=== PATIENT | male | born 1965 | race Caucasian/White ===

== ENCOUNTER 2016-11-28 03:48 | Observation (INO) ==
[2016-11-28] MEDS ORDERED: 0.9 % Sodium Chloride 1,000 ML IVC SCH (04:00)
--- NOTE | 2016-11-28 04:20 | Emergency Department Note ---
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 use: without fisher diver net use Qualified Code(s ): E11.65 - Type 2 diabetes mellitus with hyperglycemia Disposition: Admitted As Inpatient Condition: Fair Referrals: Vishal Ruvalcaba DO [Primary Care Provider] - Forms: Work/School Release, ED Satisfaction Letter Time of Disposition: 06:41 General Adult HPI - General Chief complaint: ED General Medical Stated complaint: Hyperglycemia, Nausea, Dizzy Time Seen by Provider: 11/28/16 03:59 Source: patient, EMS Limitations: no limitations Nursing Notes Reviewed: Yes Vital Signs Reviewed: Yes - History of Present Illness HPI Narrative: Patient is a 51-year-old male who presents to ED with a chief complaint of hyperglycemia, nausea, dizziness. States he was recently diagnosed with type 2 diabetes by his primary care physician Dr. Ruvalcaba. He was given a prescription for metformin which he started taking this evening. States his blood sugar remained high at over 500. He then woke up around 2:00 in the morning feeling dizzy, nauseous. Denies any vomiting. No chest pain or shortness breath. He has had a cough that has been worse over the last few days. Denies any abdominal pain, difficulty with urination. Has had some constipation. 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 Denies: chest pain, fever /chills, headaches, loss of appetite, shortness of breath, weakness Treatments Prior to Arrival: none - Related Data Previous Rx's Medication Instructions Recorded Azithromycin [Zithromax] 250 mg PO DAILY #4 tablet 08/14/16 PredniSONE [Prednisone] 50 mg PO DAILY #5 tablet 09/08/16 Allergies Allergy/AdvReac Type Severity Reaction Status Date / Time Penicillins AdvReac See Verified 11/28/16 03:54 Comments All systems ED: reviewed and negative except as stated. Past Medical History - Past Medical History Attestation: Yes The following information was validated with the patient. Source: patient Medical history: Reports: asthma, hypertension, thyroid disease Psychiatric history: Reports: anxiety, bipolar, depression, PTSD - Social History Smoking Status: Current every day smoker Smokeless Tobacco Status: Yes Alcohol use: Reports: none Drug use: Reports: none Physical Exam - General Limitations: no limitations General appearance: alert, in no apparent distress - Head Head exam: atraumatic, normocephalic, normal inspection - Eye Eye exam: Present: normal appearance, PERRL, EOMI - ENT ENT exam: normal exam, normal oropharynx, mucous membranes moist - Neck Neck exam: Present: normal inspection, full ROM, trachea midline - Chest Chest inspection: Present: normal inspection, symmetric chest wall rise - Respiratory Respiratory exam: Present: normal lung sounds bilaterally - Cardiovascular Cardiovascular exam: Present: regular rate, normal rhythm, normal heart sounds - Abdominal Exam Abdominal exam: Present: soft, Non-Tender. Absent: tenderness, distention, guarding, rebound, rigidity - Extremities Exam Extremities exam: Present: normal inspection, full ROM. Absent: tenderness, pedal edema - Back Exam Back exam: Present: normal inspection, full ROM. Absent: tenderness - Neurological Exam Neurological exam: Present: alert, oriented X3 - Psychiatric Psychiatric exam: Present: normal affect, normal mood - Skin Skin exam: Present: warm, dry, intact, normal color Course Course Narrative: Patient seen and examined. Hyperglycemia, now with nausea, dizziness. Lab work ordered to check for HHNK vs DKA. Chest x-ray ordered to assess worsening cough. - Reevaluation(s) Reevaluation #1: Patient's lab work showed elevated glucose in the 400s. Also elevated beta hydroxybutyrate. He does not have an in and gap or metabolic acidosis at this time. However seems like he may have been headed there. Due to this being a new diagnosis and patient not feeling safe about going home, will get patient admitted for stabilization of his glucose as well as diabetic education. Patient received 2 L of IV fluids as well as 8 units of IV insulin. Repeat glucose at 267. I spoke with hospitalist Dr. Rolon who has accepted patient for admission. Time: 06:41 Vital Signs Temperature 98.4 F 11/28/16 03:49 Pulse Rate 86 11/28/16 03:49 Respiratory Rate 20 11/28/16 03:49 Blood Pressure 128/83 11/28/16 03:49 O2 Sat by Pulse Oximetry 95 11/28/16 03:49 Temperature 98.4 F 11/28/16 03:49 Pulse Rate 86 11/28/16 03:49 Respiratory Rate 20 11/28/16 03:49 Blood Pressure 128/83 11/28/16 03:49 O2 Sat by Pulse Oximetry 95 11/28/16 03:49 Oxygen Delivery Oxygen Delivery Room Air Medical Decision Making - Medical Records Medical records reviewed: Yes I reviewed the patient's medical records. - Lab Data Lab results reviewed: Yes I reviewed the patient's lab results. Result diagrams: 11/28/16 04:20 11/28/16 04:20 Lab Results 11/28/16 11/28/16 11/28/16 Range/Units 03:57 03:58 04:20 WBC 10.1 (4.3-11.1) K/mcL RBC 4.89 (4.19-5.50) M/mcL Hgb 15.3 (12.9-16.9) g/dL Hct 43.5 (37.5-50.1) % MCV 89.0 (83.0-100.0) fL MCH 31.3 (28.0-33.3) pg MCHC 35.2 (31.6-35.5) g/dL RDW 13.7 (11.5-14.5) % Plt Count 260 (140-400) K/mcL MPV 10.4 (9.4-12.4) fL Immature Gran % 1.2 (0-4) % Seg Neutrophils % 66.9 % Lymphocytes % 19.3 % Monocytes % 9.8 % Eosinophils % 2.2 % Basophils % 0.6 % Neutrophils # 6.7 (1.6-8.9) K/mcL Lymphocytes # 1.9 (0.6-4.6) K/mcL Monocytes # 1.0 (0.0-1.3) K/mcL Eosinophils # 0.2 (0.0-0.6) K/mcL Basophils # 0.1 (0.0-0.2) K/mcL VBG pH (7.32-7.42) pH Units VBG pCO2 (41-51) mmHg VBG pO2 (25-40) mmHg VBG HCO3 (21-27) mEq/L Sodium (136-145) mEq/L Potassium (3.5-4.5) mEq/L Chloride (98-109) mEq/L Carbon Dioxide (19-29) mEq/L BUN (8-26) mg/dL Creatinine (0.72-1.25) mg/dL Est GFR ( Amer) (> 60) Est GFR (Non-Af Amer) (> 60) BUN/Creatinine Ratio (6-26) Glucose (70-99) mg/dL POC Glucose 452 H* 486 H* (58-89) Calculated Osmolality (280-300) Calcium (8.6-10.8) mg/dL Magnesium (1.6-2.6) mg/dL Beta-Hydroxybutyric Acd (0.02-0.27) mmol/L 11/28/16 11/28/16 Range/Units 04:20 04:20 WBC (4.3-11.1) K/mcL RBC (4.19-5.50) M/mcL Hgb (12.9-16.9) g/dL Hct (37.5-50.1) % MCV (83.0-100.0) fL MCH (28.0-33.3) pg MCHC (31.6-35.5) g/dL RDW (11.5-14.5) % Plt Count (140-400) K/mcL MPV (9.4-12.4) fL Immature Gran % (0-4) % Seg Neutrophils % % Lymphocytes % % Monocytes % % Eosinophils % % Basophils % % Neutrophils # (1.6-8.9) K/mcL Lymphocytes # (0.6-4.6) K/mcL Monocytes # (0.0-1.3) K/mcL Eosinophils # (0.0-0.6) K/mcL Basophils # (0.0-0.2) K/mcL VBG pH 7.40 (7.32-7.42) pH Units VBG pCO2 48 (41-51) mmHg VBG pO2 66 H (25-40) mmHg VBG HCO3 29.7 H (21-27) mEq/L Sodium 129 L (136-145) mEq/L Potassium 4.1 (3.5-4.5) mEq/L Chloride 95 L (98-109) mEq/L Carbon Dioxide 22 (19-29) mEq/L BUN 12 (8-26) mg/dL Creatinine 1.24 (0.72-1.25) mg/dL Est GFR ( Amer) > 60 (> 60) Est GFR (Non-Af Amer) > 60 (> 60) BUN/Creatinine Ratio 10 (6-26) Glucose 483 H (70-99) mg/dL POC Glucose (58-89) Calculated Osmolality 289 (280-300) Calcium 9.3 (8.6-10.8) mg/dL Magnesium 1.7 (1.6-2.6) mg/dL Beta-Hydroxybutyric Acd 0.30 H (0.02-0.27) mmol/L - Radiology Data Radiology results reviewed: Yes I reviewed the patient's radiology results. Chest X-Ray 11/28/16 04:17 IMPRESSION: No significant findings in the chest. D/ / Nolan Conti MD / Nolan Conti MD Interpreting Provider: Nolan Conti MD - EKG Data EKG #1 EKG attestation: Yes I reviewed and interpreted this EKG. EKG results narrative: EKG done at 434 shows normal sinus rhythm with a rate of [address] elevation or depression. Normal axis. Unchanged from prior EKG done 09/08/2016 Attestation Statement - Attestation Attestation: I examined this patient and my medical decision-making was reviewed with the CLOUD AUTOMATION TESTER/PA/Advanced Practice Nurse/Resident Physician. I agree with the documented findings, disposition and treatment plan as described except to the extent set forth below. Patient to the emergency department with a chief complaint of not feeling well. Dizzy and nauseated. Patient saw his PCP yesterday and was started on metformin for a blood sugar of 500. He is a newly diagnosed diabetic. Denies chest pain or trouble breathing. On exam is awake alert no acute distress. Heart regular rate and rhythm lungs are clear. Plan. The patient's blood sugar here is in the upper 400s. He is given IV fluids. Hospitalist refusing admission. We will give a dose of IV insulin and then admit.
[2016-11-28 04:31] LABS: Basophils # 0.1 K/mcL (0.0-0.2); Basophils % 0.6 %; Eosinophils # 0.2 K/mcL (0.0-0.6); Eosinophils % 2.2 %; Hematocrit 43.5 % (37.5-50.1); Hemoglobin 15.3 g/dL (12.9-16.9); Immature Granulocytes % 1.2 % (0-4); Lymphocytes # 1.9 K/mcL (0.6-4.6); Lymphocytes % 19.3 %; Mean Corpuscular HGB Conc 35.2 g/dL (31.6-35.5); Mean Corpuscular Hemoglobin 31.3 pg (28.0-33.3); Mean Platelet Volume 10.4 fL (9.4-12.4); Monocytes % 9.8 %; Neutrophils # 6.7 K/mcL (1.6-8.9); Platelet Count 260 K/mcL (140-400); Red Blood Count 4.89 M/mcL (4.19-5.50); Red Cell Distribution Width 13.7 % (11.5-14.5); Segmented Neutrophils % 66.9 %
[2016-11-28 04:34] LABS: VBG HCO3 29.7 mEq/L (21-27); VBG PH 7.4 pH Units (7.32-7.42)
[2016-11-28 04:49] LABS: BUN/Creatinine Ratio 10 (6-26); Blood Urea Nitrogen 12 mg/dL (8-26); Calcium 9.3 mg/dL (8.6-10.8); Carbon Dioxide 22 mEq/L (19-29); Chloride 95 mEq/L (98-109); Glucose 483 mg/dL (70-99); Magnesium 1.7 mg/dL (1.6-2.6); Osmolality,Calculated 289 (280-300); Potassium 4.1 mEq/L (3.5-4.5); Sodium 129 mEq/L (136-145); eGFR For African Americans > 60 (> 60); eGFR For Non-African Americans > 60 (> 60)
[2016-11-28] MEDS ORDERED: 0.9 % Sodium Chloride 1,000 ML IVC ONE (04:53)
[2016-11-28] MEDS ORDERED: Insulin Regular, Human 100 UNIT/ML IV SCH (05:15)
[2016-11-28] MEDS ORDERED: Acetaminophen 325 MG TABLET PO PRN (08:05)
[2016-11-28] MEDS ORDERED: *HR* Dextrose 50 % in Water (Syg) 50 ML SYRINGE IVP PRN (08:07)
[2016-11-28] MEDS ORDERED: Dextrose Gel 15 GM PO PRN ×2 (08:07)
[2016-11-28] MEDS ORDERED: D5% in Water 1,000 ML IV PRN (08:07)
[2016-11-28] MEDS: 0.9 % Sodium Chloride 1,000 ML IVC SCH ×2 (09:33→19:58)
[2016-11-28 10:13] LABS: Hemoglobin A1C 11.5 %
[2016-11-28] MEDS: Insulin LISPRO 300 UNITS/3 ML VIAL SQ SCH ×2 (12:01→17:17)
[2016-11-28] MEDS ORDERED: hydrOXYzine pamoate 25 MG CAPSULE PO PRN (12:17)
[2016-11-28] MEDS ORDERED: Ibuprofen 600 MG TABLET PO PRN (12:19)
--- NOTE | 2016-11-28 12:24 | Internal Med History&Physical ---
Date of Encounter: 11/28/16 Time of Encounter: 12:21 Assessment and Plan (1) Morbid obesity with BMI of 50.0-59.9, adult Current visit: Yes Status: Acute Patient weight loss regimen. I have advised increasing physical exercise level. (2) Essential hypertension Current visit: Yes Status: Acute Continue with lisinopril. (3) Hypothyroidism Current visit: Yes Status: Acute Check TSH. Continue levothyroxine. Qualifiers: Hypothyroidism type: unspecified Qualified Code(s): E03.9 - Hypothyroidism , unspecified (4) DVT prophylaxis Current visit: Yes Status: Acute Encourage early ambulation. (5) Hyperglycemia due to type 2 diabetes mellitus Current visit: Yes Status: Acute We will start insulin sliding scale. We will treat him with IV fluids. We will get nurse educator to talk to him. We will start glipizide. Continue his metformin. Plan for discharge home on glipizide and metformin. Check hemoglobin A1c. Qualifiers: Diabetes mellitus care home insulin use: without care home use Qualified Code(s): E11.65 - Type 2 diabetes mellitus with hyperglycemia (6) Tobacco use disorder Current visit: Yes Status: Acute I have advised smoking cessation and provided counseling. Internal Medicine - H&P: HPI Chief complaint: Elevated blood glucose Admitted From: Emergency Dept Plans for Post Hospital Care: Home History of present illness: Mr. Adamson is a 51 year old male with past medical history significant for hypertension, asthma, hypothyroidism and morbid obesity, recently diagnosed with type 2 diabetes yesterday and started on metformin who presented to the hospital for moderate to severe dizziness felt as disequilibrium and lightheadedness that started yesterday and got significantly worse this morning around 2 AM when he stood up to go to the bathroom. He denies any associated chest pain shortness of breath nausea vomiting diarrhea. He was diagnosed with type 2 diabetes yesterday and prescribed metformin. He checked his blood glucose at home and was 400 and after taking the metformin his blood glucose was above 500. He has chronic back pain and neck pain, chronic depression and anxiety. He reports polyuria and polydipsia for the last 2 months. A temporary review of systems was negative. Past medical history as above Psychiatric history: Anxiety depression and PTSD. Family history positive for COPD and lung cancer in the patient's mother and CAD in the patient's father Past Med Surg Social Fam HX - Past Medical History Medical history: asthma, hypertension, thyroid disease Psychiatric history: anxiety, bipolar, depression, PTSD - Social History Smoking Status: Current every day smoker Packs per day: 5 cigerettes Smokeless Tobacco Status: Yes Alcohol use: none Drug use: none - Family History Mother Living Status: Hx Family Cardiac Disorders: Yes (HTN) Hx Family Respiratory Disorders: Yes (COPD) Father Living Status: Hx Family Cardiac Disorders: Yes (Heart disease, HTN) Hx Family Endocrine Disorder: Yes (DM) Sister Living Status: Still Living Hx Family Endocrine Disorder: Yes (DM) Internal Medicine - H&P: Meds Hydrochlorothiazide 25 mg PO DAILY 11/28/16 [History] Hydroxyzine HCl 25 - 50 mg PO TID PRN 11/28/16 [History] Levothyroxine Sodium [Levoxyl] 200 mcg PO DAILY 11/28/16 [History] Lisinopril [Zestril] 20 mg PO DAILY 11/28/16 [History] Metformin [Glucophage] 1,000 mg PO BIDWM 11/28/16 [History] Naproxen [Naprosyn] 500 mg PO BID 11/28/16 [History] Sertraline [Zoloft] 50 mg PO DAILY 11/28/16 [History] Allergies Penicillins Adverse Reaction (Verified 11/28/16 03:54) See Comments "dosen't work for me" All Systems PM: A 10-system review of systems was performed and is negative for pertinent findings except as documented above in the HPI. - Constitutional Vitals: Temp Pulse Resp BP Pulse Ox 97.3 F L 80 16 120/80 98 11/28/16 10:35 11/28/16 10:35 11/28/16 10:35 11/28/16 10:35 11/28/16 10:35 General appearance: Present: A&O X 3, morbidly obese - Eye Eye exam: Present: PERRL, conjuntiva pink, sclera anicteric Pupils: Present: PERRL - Respiratory Respiratory exam: Present: CTAB. Absent: accessory muscle use, rales, rhonchi, wheezes - Cardiovascular Cardiovascular exam: Present: RRR, +S1, +S2. Absent: diastolic murmur, gallop, rubs, systolic murmur - GI/Abdominal GI/Abdominal exam: Present: normal bowel sounds, soft, no peritoneal signs. Absent: distended, tenderness - Extremities Exam Extremities exam: Present: warm, radial pulses palpable and symetrical. Absent : calf tenderness, cyanotic, pedal edema - Neurological Exam Neurological exam: Present: CN II-XII intact, oriented X3, no focal deficits. Absent: pronater drift, facial droop, speech deficit - Skin Skin exam: Present: dry, intact Internal Med - H&P Results - Labs CBC & Chem 7: 11/28/16 04:20 11/28/16 04:20
[2016-11-28] MEDS: hydroCHLOROthiazide 25 MG TABLET PO SCH (13:37)
[2016-11-28] MEDS: Lisinopril 20 MG TABLET PO SCH (13:37)
[2016-11-28] MEDS ORDERED: Albuterol 2.5 MG/3 ML NEBULIZER IH PRN (13:41)
[2016-11-28] MEDS: *HR* OxyCODONE Immed Rel 5 MG TABLET PO PRN (15:38)
[2016-11-28] MEDS: *HR* Metformin 500 MG TABLET PO SCH (17:17)
[2016-11-28] MEDS ORDERED: Insulin LISPRO 300 UNITS/3 ML VIAL SQ SCH (21:00)
[2016-11-29 04:29] LABS: Basophils # 0.1 K/mcL (0.0-0.2); Basophils % 0.8 %; Eosinophils # 0.3 K/mcL (0.0-0.6); Hematocrit 41.6 % (37.5-50.1); Hemoglobin 14.8 g/dL (12.9-16.9); Immature Granulocytes % 1.3 % (0-4); Lymphocytes # 2.7 K/mcL (0.6-4.6); Lymphocytes % 30.9 %; Mean Corpuscular HGB Conc 35.6 g/dL (31.6-35.5); Mean Platelet Volume 10.6 fL (9.4-12.4); Monocytes # 0.8 K/mcL (0.0-1.3); Monocytes % 9.4 %; Neutrophils # 4.7 K/mcL (1.6-8.9); Platelet Count 241 K/mcL (140-400); Red Blood Count 4.62 M/mcL (4.19-5.50); Red Cell Distribution Width 13.7 % (11.5-14.5); Segmented Neutrophils % 54.6 %
[2016-11-29 04:41] LABS: BUN/Creatinine Ratio 9 (6-26); Blood Urea Nitrogen 9 mg/dL (8-26); Calcium 8.4 mg/dL (8.6-10.8); Carbon Dioxide 23 mEq/L (19-29); Chloride 96 mEq/L (98-109); Glucose 251 mg/dL (70-99); Osmolality,Calculated 277 (280-300); Potassium 3.8 mEq/L (3.5-4.5); Sodium 130 mEq/L (136-145); eGFR For African Americans > 60 (> 60); eGFR For Non-African Americans > 60 (> 60)
[2016-11-29 05:03] LABS: Thyroid Stimulating Hormone 56.728 mcIU/mL (0.350-4.840)
[2016-11-29] MEDS: *HR* OxyCODONE Immed Rel 5 MG TABLET PO PRN (05:33)
[2016-11-29 06:45] VITALS: BP 108/72
[2016-11-29] MEDS ORDERED: *HR* GlipiZIDE XL (24 HR) 2.5 MG TABLET PO SCH (08:00)
[2016-11-29] MEDS: Insulin LISPRO 300 UNITS/3 ML VIAL SQ SCH (08:24)
[2016-11-29] MEDS: Lisinopril 20 MG TABLET PO SCH (08:25)
[2016-11-29] MEDS: hydroCHLOROthiazide 25 MG TABLET PO SCH (08:25)
[2016-11-29] MEDS: *HR* Metformin 500 MG TABLET PO SCH (08:25)
[2016-11-29] MEDS ORDERED: BuPROPion XL (24 HR) 150 MG TABLET PO SCH (09:00)
[2016-11-29] MEDS ORDERED: *HR* SitaGLIPtin 100 MG TABLET PO SCH (10:15)
[2016-11-29] MEDS ORDERED: Insulin DETEMIR 100 UNIT/ML X5UNITS SQ SCH (10:15)
--- NOTE | 2016-11-29 10:21 | Discharge Summary ---
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: without alf use Qualified Code(s): E11.65 - Type 2 diabetes mellitus with hyperglycemia (3) Hypothyroidism Priority: Secondary Status: Chronic Qualifiers: Hypothyroidism type: unspecified Qualified Code(s): E03.9 - Hypothyroidism , unspecified (4) Morbid obesity with BMI of 50.0-59.9, adult Priority: Secondary Status: Chronic (5) Tobacco use disorder Priority: Secondary Status: Chronic (6) Orthostatic dizziness Priority: Primary Status: Acute (7) Dehydration with hyponatremia Priority: Primary Status: Acute - Discharge Medications Prescriptions: Blood Sugar Diagnostic [Test Strips] 1 each TID #100 strip Insulin Glargine,Hum.rec.anlog [Lantus Solostar] 15 unit SQ QPM #1 insuln.pen SitaGLIPtin [Januvia] 100 mg PO DAILY 30 Days Home Medications: BuPROPion [Wellbutrin] 150 mg PO DAILY 11/28/16 [History] Fluticasone/Vilanterol [Breo Ellipta 100-25 Mcg INH] 1 puff IH DAILY 11/28/16 [ History] Hydrochlorothiazide 25 mg PO DAILY 11/28/16 [History] Hydroxyzine HCl 25 - 50 mg PO TID PRN 11/28/16 [History] Ipratropium/Albuterol Sulfate [Combivent Respimat Inhal [place]] 4 gm IH QID 11/28 [History] Levothyroxine Sodium [Levoxyl] 200 mcg PO DAILY 11/28/16 [History] Lisinopril [Zestril] 20 mg PO DAILY 11/28/16 [History] Metformin [Glucophage] 1,000 mg PO BIDWM 11/28/16 [History] Naproxen [Naprosyn] 500 mg PO BID 11/28/16 [History] Oxymetazoline HCl [Nasal [place]] 2 spray IN TID PRN 11/28/16 [History] Prazosin 1 mg PO HS 11/28/16 [History] Blood Sugar Diagnostic [Test Strips] 1 each TID #100 strip 11/29/16 [Rx] Insulin Glargine,Hum.rec.anlog [Lantus Solostar] 15 unit SQ QPM #1 insuln.pen [Rx] SitaGLIPtin [Januvia] 100 mg PO DAILY 30 Days 11/29/16 [Rx] Allergies/Adverse Reactions: Allergies Penicillins Adverse Reaction (Verified 11/28/16 03:54) See Comments "dosen't work for me" Date of admission: 11/28/16 06:50 Primary care physician: Vishal Antoine Consults: 11/28/16 08:07 Consult to Airconditioning Plant Operator [CONS] Stat Comment: Discharging clinician: Rony Anderson Anticipated date of discharge: 11/29/16 - Patient Status Disposition: Home, Self-Care Condition: Good Overall status at discharge: patient is back to baseline - Discharge Instructions Follow Up With: Vishal Ruvalcaba DO [Primary Care Provider] - Additional Instructions: HbA1C in 3 months. - Diet and Activity Activity: resume usual activities as tolerated Diet: diabetic diet, low fat, low cholesterol Interval History: He feels better, random blood glucose is now 200-250. Hospital course: Mr. Adamson is a 51 year old male with medical history significant for hypertension, asthma, hypothyroidism and morbid obesity, recently diagnosed with type 2 diabetes, with initiation of metformin therapy admitted with severe dizziness felt as disequilibrium and lightheadedness, in the setting of hyperglycemia (RBS>400) and complaint of polyuria. He had anxiety about blood glucose reading >500. HbA1C done a couple of days ago was 11.5%. He was admitted for IV hydration and optimal glycemic control. He received IVF, sliding scale insulin. Glucose control had improved at discharge and he was much better hydrated. He is discharged home on Levemir 15u QD, Januvia 100mg po QD and to continue his home Metformin. HbA1C should be repeated in 3 months. [facility] 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 Skin: No active skin lesion. - Time Spent with Patient Total time spent providing and/or coordinating discharge services: Greater than 30 minutes Specific discharge activities: as tolerated, lifestyle and dietary changes. - Constitutional Vitals: Temp Pulse Resp BP Pulse Ox 97.4 F L 83 16 108/72 95 11/29/16 06:39 11/29/16 06:39 11/29/16 06:39 11/29/16 06:39 11/29/16 06:39 General appearance: Present: A&O X 3, morbidly obese
--- NOTE | 2016-11-30 15:16 | Electrocardiograph Report ---
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
== END 2016-11-29 16:45 | disposition home or self-care (01) ==
LOC: EMEROO 03:48 → 3BNU 03:48
PROVIDERS: ADMIT Internal Medicine; ATTEND Nurse Practitioner Family